=== PATIENT | female | born 1990 | race Caucasian/White ===

== ENCOUNTER 2017-05-26 17:19 | Emergency (ER) | payer SELFPAY ==
[2017-05-26 17:24] VITALS: BP 127/68; BMI 28.3
--- NOTE | 2017-05-26 18:01 | DR.GENAD ---
HPI - PCP Primary Care Physician: pollo - HPI Comment HPI Comment: PUSTULE MID FOREHEAD THAT IS RED AND SWOLLEN. DRAIN AT HOME. WELLING EXTENDING TO NEAR MEDIAL CORNER OF LT EYE. NO FEVER. NO EYE DRAINAGE. - Complaint/Symptoms Chief Complaint Doctors Comments: CELLULITIS MID FOREHEAD TIMES ONE DAY. SWELLING AND REDNESS INCREASING. Chief Complaint:: patient stated her left eye has a bump on the left side of her nose. she stated he busted and started draining today and it hurts - Nurses notes reviewed Nurses Notes Review: Yes - Source History Provided: Patient - Mode of Arrival Mode of Arrival: Ambulatory - Timing Onset of Chief Complaint: 05/25/17 Came on: Suddenly - Duration Duration: Constant Duration: Days - Severity Severity: Moderate PMH - PMH Past Medical History: Yes Past Medical History: Headaches Past Surgical History: Yes Surgical History: - Family History History of Family Medical Conditions: Yes Family Medical History: Diabetes Mellitus, Cancer - Social History Does patient currently use any type of tobacco product: Yes Have you used tobacco products in the last 12 months: Yes Type of Tobacco Use: Cigarettes How many years tobacco product used: 3 Does any household member use tobacco: No Alcohol Use: None Do you use any recreational Drugs:: No Lives With: Family Lives Where: Home - infectious screening In the last 2 months have you had wt loss of >10#?: NO Have you had fever, night sweats or hemotysis?: No Have you traveled outside the country in the last 6 months?: No Isolation: Standard ROS - Review of Systems Constitutional: No Symptoms Reported Eyes: No Symptoms Reported ENTM: No Symptoms Reported Respiratoy: No Symptoms Reported Cardiovascular: No Symptoms Reported Gastrointestinal/Abdominal: No Symptoms Reported Genitourinary: No Symptoms Reported Neurological: No Symptoms Reported Musculoskeletal: No Symptoms Reported Integumentary: Other (FOREHEAD SWELLING WITH REDNESS AND DRAINAGE.) Hematologic/Lymphatic: No Symptoms Reported Endocrine: No Symptoms Reported All Other Systems: Reviewed and Negative PE - Vital Signs Vitals: Temperature 98.6 F Pulse Rate 80 Respiratory Rate 16 Blood Pressure [Right Arm] 120/81 Blood Pressure [Left Arm] 137/71 Blood Pressure 127/68 O2 Sat by Pulse Oximetry 100 - General Limitations: No Limitations General Appearance: Alert - Head Head Exam: Other (SWELLING, REDNESS MID FOREHEAD WITH TENDERNESS.) - Eyes Eye exam: PERRL, EOMI, Other (CORNER LT EYE SWOLLEN,) - ENT ENT Exam: Normal External Ear Exam External Ear Exam: Normal External Inspection TM/Canal Exam: Bilateral Normal Nose Exam: Normal Nose Exam Mouth Exam: Normal Inspection Throat Exam: Normal Inspection - Neck Neck Exam: Trachea Midline - Chest Chest Inspection: Symmetric Chest Wall Rise - Respiratory Respiratory Exam: Normal Lung Sounds Bilat Respiratory Exam: Bilateral Clear to Auscultation - Cardiovascular Cardiovascular Exam: Regular Rate, Normal Rhythm, Normal Heart Sounds - Abdominal Exam Abdominal Exam: Normal Bowel Sounds, Soft. negative: Tenderness - Extremities Extremities Exam: Normal Inspection - Back Back Exam: Normal Inspection - Neurologic Neurological Exam: Alert, Oriented X3, CN II-XII Intact, Normal Gait, Reflexes Normal ( ). negative: Motor Sensory Deficit - Psychiatric Psychiatric Exam: Normal Affect, Normal Mood - Skin Skin Exam: Erythema MDM - Differential Diagnosis Differential Diagnosis: ABSCESS, CELLULITIS FOREHEAD Course - Treatment Treatment: SEE ORDERS. - Education/Counseling Education/Counseling: Patient, Education Educated On: Diagnosis, Needs for Follow Up - Diagnosis Discharge Problem: Abscess Cellulitis Qualifiers: Site of cellulitis: face Qualified Code(s): L03.211 - Cellulitis of face - Discharge Plan Disposition: HOME, SELF-CARE Condition: Stable Prescriptions: Ibuprofen [MOTRIN TAB 600 MG *] 600 mg PO TID PRN #20 tab PRN Reason: Pain/Inflammation Sulfamethoxazole-Trimethoprim [BACTRIM DS TAB 800/160 MG *] 1 tab PO BID #20 tab - Follow ups/Referrals Follow ups/Referrals: Pedro Centeno [Primary Care Provider] - 3 days - Instructions Instructions: Cellulitis Additional Instructions: RETURN TO ED IF WORSE.
[2017-05-26] MEDS ORDERED: BACTRIM DS TAB PO ONE ×2 (18:03→18:07)
[2017-05-26] MEDS ORDERED: MOTRIN TAB 600 MG PO ONE ×2 (18:04→18:07)
== END 2017-05-26 18:19 | disposition home or self-care (01) ==
LOC: ER 17:26
DX: L02.01 Cutaneous abscess of face (principal); L03.211 Cellulitis of face
CPT/HCPCS: 87070; 87075; 87077; 87186; 87205; 99281; 99282

== ENCOUNTER 2017-05-27 11:00 | Emergency (ER) | payer SELFPAY ==
[2017-05-27 11:17] VITALS: BP 151/97; BMI 28.3
[2017-05-27] MEDS ORDERED: ROCEPHIN VIAL 1 GM IM ONE (11:27)
[2017-05-27] MEDS ORDERED: ROCEPHIN VIAL 1 GM ONE (11:28)
--- NOTE | 2017-05-27 11:28 | DR.EYE ---
HPI - Time Seen Time seen: 11:25 - PCP Primary Care Physician: DR. MCGINNIS - Complaint Chief Complaint Doctors Comments: Patient was seen on yesterday given a prescription for a left conjunctivitis. She reports that she can not afford the medication. Chief Complaint:: PT SEEN IN ER ON 05/26/17 FOR CELLULITIS TO THE LEFT EYE PT DID NOT GET HER BACTRIM FILLED B/C PHARMACY CLOSED AND PT STATES THERE IS MORE EDEMA AND HER EYE IS CLOSED ALL THE WAY".. Self Treatment fo Chief Complaint: WARM COMPRESSES - Source History Provided: Patient - Mode of arrival Mode of Arrival: Ambulatory - Timing Onset of Chief Complaint: 05/25/17 PMH - PMH Past Medical History: Yes Past Medical History: Migraines Past Surgical History: Yes Surgical History: Past Surgical History Comment: - Family History History of Family Medical Conditions: No Family Medical History: Diabetes Mellitus, Cancer - Social History Does patient currently use any type of tobacco product: Yes Have you used tobacco products in the last 12 months: Yes Type of Tobacco Use: Cigarettes How many years tobacco product used: 3 Does any household member use tobacco: No Alcohol Use: None Do you use any recreational Drugs:: No Lives With: Family Lives Where: Home - infectious screening In the last 2 months have you had wt loss of >10#?: NO Have you had fever, night sweats or hemotysis?: No Have you traveled outside the country in the last 6 months?: No Isolation: Standard ROS - Review of Systems Eyes: Other (conjunctivitis of left eye, lid is swollen) ENTM: No Symptoms Reported Respiratoy: No Symptoms Reported Cardiovascular: No Symptoms Reported Gastrointestinal/Abdominal: No Symptoms Reported Genitourinary: No Symptoms Reported Neurological: No Symptoms Reported Musculoskeletal: No Symptoms Reported Integumentary: No Symptoms Reported Hematologic/Lymphatic: No Symptoms Reported Endocrine: No Symptoms Reported Psychiatric: No Symptoms Reported All Other Systems: Reviewed and Negative PE - Vital Signs Vitals: Temperature 99.1 F Pulse Rate 105 Respiratory Rate 22 Blood Pressure [Right Arm] 120/81 Blood Pressure [Left Arm] 137/71 Blood Pressure 151/97 O2 Sat by Pulse Oximetry 100 - General General Appearance: Alert, In No Apparent Distress - Head Head Exam: Normal Inspection - Eyes Eye exam: Conjunctival Injection, Periorbital Swelling Eyelids: Swelling Eyelid: Bilateral Sclera/Conjunctival: Injection: Bilateral Posterior Chamber: Deferred: Bilateral - ENT ENT Exam: Normal Exam External Ear Exam: Normal External Inspection TM/Canal Exam: Bilateral Normal Nose Exam: Normal Nose Exam Mouth Exam: Normal Inspection Throat Exam: Normal Inspection - Neck Neck Exam: Normal Inspection, Full ROM - Chest Chest Inspection: Normal Inspection - Respiratory Respiratory Exam: Normal Lung Sounds Bilat Respiratory Exam: Bilateral Clear to Auscultation - Cardiovascular Cardiovascular Exam: Regular Rate, Normal Rhythm - Abdominal Exam Abdominal Exam: Normal Inspection Abdominal Tenderness: negative: RUQ, RLQ, LUQ, LLQ, Epigastrium, Suprapubic, Diffuse, Mild, Moderate, Severe, Other - Extremities Extremities Exam: Normal Inspection - Back Back Exam: Normal Inspection - Neurologic Neurological Exam: Alert, Oriented X3, CN II-XII Intact - Psychiatric Psychiatric Exam: Normal Affect, Normal Mood - Skin Skin Exam: Warm, Dry, Intact Course - Treatment Treatment: IM ceftriaxone 1gm - Reevaluation 1st: Unchanged - Diagnosis Discharge Problem: Conjunctivitis, left eye Qualifiers: Conjunctivitis type: acute Acute conjunctivitis type: unspecified Qualified Code(s): H10.32 - Unspecified acute conjunctivitis, left eye - Discharge Plan Condition: Stable - Follow ups/Referrals Follow ups/Referrals: Pedro Mcginnis [Primary Care Provider] - 3 days - Instructions Additional Instructions: Patient is to get prescription fill on tomorrow
== END 2017-05-27 11:54 | disposition home or self-care (01) ==
LOC: ER 11:17
DX: H10.32 Unspecified acute conjunctivitis, left eye (principal)
CPT/HCPCS: 96372; 99282; J0696

== ENCOUNTER 2023-10-23 06:43 | Inpatient (IN) ==
[2023-10-23 07:11] VITALS: BMI 37.1
[2023-10-23 07:29] LABS: BILIRUBIN,URINE NEGATIVE (NEGATIVE); BLOOD/HEMOGLOBIN,URINE NEGATIVE (NEGATIVE); GLUCOSE, URINE NEGATIVE (NEGATIVE); KETONES,URINE NEGATIVE (NEGATIVE); LEUKOCYTE ESTERASE ,URINE NEGATIVE (NEGATIVE); NITRITES,URINE NEGATIVE (NEGATIVE); PH,URINE 6.5 (5.0 - 8.0); PROTEIN,URINE 2+ (NEGATIVE); UROBILINOGEN,URINE NORMAL (NORMAL)
[2023-10-23 07:41] LABS: APPEARANCE,URINE CLEAR (CLEAR); BACTERIA,URINE TRACE /HPF (NEGATIVE); COLOR,URINE STRAW (YELLOW); RBC,URINE NONE SEEN /HPF (0-3); SQUAMOUS EPITHELIAL CELL,UR MANY /HPF (NEGATIVE)
[2023-10-23 08:11] LABS: HEMATOCRIT 22.2 % (36.0-47.0); HEMOGLOBIN 7.3 g/dL (12.0-16.0); MEAN PLATELET VOLUME 9.2 fL (7.4-11.0); RED BLOOD COUNT 2.97 X10^6/uL (3.5-5.4); WHITE BLOOD COUNT 10.1 X10^3/uL (3.6-10.0)
[2023-10-23 08:15] LABS: INR 0.95 (0.8-1.3)
[2023-10-23 08:16] LABS: BASOPHILS % (AUTO) 0.3 % (0.2-1.0); EOSINOPHILS # (AUTO) 0.3 x10^3/uL (0.0-0.2); EOSINOPHILS % (AUTO) 2.7 % (0.9-2.9); LYMPHOCYTES # (AUTO) 1.3 X10^3/uL (1.3-2.9); MEAN CORPUSCULAR HEMOGLOBIN 24.6 pg (27.0-34.0); MEAN CORPUSCULAR HGB CONC 32.8 g/dL (33.0-35.0); MONOCYTES # (AUTO) 0.7 x10^3/uL (0.3-0.8); MONOCYTES % (AUTO) 6.7 % (0.0-13.0); NEUTROPHILS # (AUTO) 7.8 x10^3/uL (2.2-4.8); NEUTROPHILS % (AUTO) 77.3 % (42.0-75.0); PLATELET COUNT 214 X10^3/uL (150.0-450.0); RED CELL DISTRIBUTION WIDTH 16.8 % (11.6-16.5)
[2023-10-23 08:27] LABS: ALANINE AMINOTRANSFERASE 12 Units/L (12-78); ALBUMIN 1.7 g/dL (3.4-5.0); ALKALINE PHOSPHATASE 190 Units/L (46-116); ASPARTATE AMINO TRANSFERASE 15 Units/L (15-37); BLOOD UREA NITROGEN 11 mg/dL (7-18); CALCIUM 7.9 mg/dL (8.5-10.1); CARBON DIOXIDE 22.5 mmol/L (21-32); CHLORIDE 106 mmol/L (98-107); COR CA(FOR HYPOALB) 9.7 mg/dL (8.5-10.1); CREATININE 0.76 mg/dL (0.55-1.02); GLUCOSE 85 mg/dL (65-99); SODIUM 136 mmol/L (136-145); TOTAL PROTEIN 5.8 g/dL (6.4-8.2); URIC ACID 4.5 mg/dL (2.6-6.0); eGFR NON BLACK RACES > 60 (>60)
[2023-10-23] MEDS ORDERED: LR 1,000 ML IV 1,000 ML IV ONE ×2 (09:03→09:05)
--- NOTE | 2023-10-23 10:13 | US ---
EXAM:OB GREATER THAN 14 WEEKS LIMITHISTORY:; no care, pre eclampticCOMPARISON:NoneTECHNIQUE:Multip le amaya scale and color flow Doppler images of the pelvis were obtained with focused evaluation of the fetus.FINDINGS:A viable single intrauterine is identified with heart tones of 127 beats per minute. A cephalic presentation is observed with a anterior and fundal placenta. Normal amniotic fluid volume is observed with an DARIUSZ of 10.9 cm. Evaluation of the anatomy including the stomach, kidneys, urinary bladder, and four-chamber heart are unremarkable. The extremities and spine are normal in their sonographic appearance. A three-vessel cord is observed. The cord inserts in the abdomen.Estimated weight is 3811 gramsThe BPD is 9.9 cm corresponding to and estimated gestational age of 40 weeks 6 days.The HC is 34.0 cm corresponding to and estimated gestational age of 39 weeks 1 day.The AC is 35.3 cm corresponding to and estimated gestational age of 39 weeks 2 days.The FL is 7.7 cm corresponding to and estimated gestational age of 39 weeks 4 days.IMPRESSION:A viable single intrauterine with an average ultrasound age of 39 weeks 6 days correspond to an estimated date of delivery of 10/24/2023.No identifiable anatomical abnormality in the fetus.THIS IS AN ELECTRONICALLY VERIFIED FINAL [id number]/23/2023 10:10 AM - Electronically signed by César Evans MD
[2023-10-23] MEDS ORDERED: ANCEF VIAL 1 GRAM ONE (10:14)
[2023-10-23] MEDS ORDERED: NS 100 ML IV 100 ML ONE (10:14)
[2023-10-23] MEDS ORDERED: MARCAINE SPINAL ONE (10:25)
[2023-10-23] MEDS ORDERED: VERSED ONE (10:25)
[2023-10-23] MEDS ORDERED: XYLOCAINE 2 % (PLAIN) ONE (10:25)
[2023-10-23] MEDS ORDERED: DILAUDID INJ ONE (10:25)
[2023-10-23] MEDS ORDERED: BARHEMSYS INJ IVP PRN (10:32)
[2023-10-23] MEDS ORDERED: REGLAN INJ 10 MG VIAL IVP PRN ×3 (10:32→13:06)
[2023-10-23] MEDS ORDERED: ZOFRAN INJ 4 MG VIAL IVP PRN (10:32)
[2023-10-23] MEDS ORDERED: BENADRYL INJ 50 MG VIAL IVP PRN ×3 (10:32→13:06)
[2023-10-23] MEDS ORDERED: ZOFRAN INJ 4 MG VIAL ONE (10:34)
[2023-10-23] MEDS ORDERED: PITOCIN ONE ×2 (10:34→15:13)
[2023-10-23] MEDS ORDERED: TORADOL 30 MG VIAL IVP PRN ×2 (10:50→13:06)
[2023-10-23] MEDS ORDERED: NARCAN INJ IVP PRN ×2 (10:50→13:06)
[2023-10-23] MEDS ORDERED: PERCOCET TAB 5/325 MG PO PRN ×2 (10:50→13:06)
[2023-10-23] MEDS ORDERED: BENADRYL INJ 50 MG VIAL ONE (12:22)
[2023-10-23] MEDS ORDERED: ADACEL or BOOSTRIX TDaP VACCINE IM ONE ×2 (13:06→15:27)
[2023-10-23] MEDS ORDERED: D5 1/2 NS 1,000 ML 1,000 ML with PITOCIN 20 UNITS IV SCH ×2 (13:06)
[2023-10-23] MEDS ORDERED: MYLICON TAB 80 MG CHEW PO PRN (13:06)
[2023-10-23] MEDS ORDERED: HYPERRHO S/D (or RHOGAM) IM PRN (13:06)
[2023-10-23] MEDS: ZOFRAN INJ 4 MG VIAL IVP PRN ×2 (15:02→22:36)
[2023-10-23] MEDS ORDERED: D5 1/2 NS 1,000 ML 1,000 ML IV ONE (15:13)
[2023-10-23 18:27] LABS: HEMATOCRIT 18.8 % (36.0-47.0); HEMOGLOBIN 5.9 g/dL (12.0-16.0)
[2023-10-23] MEDS ORDERED: NS 250 ML IV 250 ML IV ONE (21:01)
[2023-10-23] MEDS: D5 1/2 NS 1,000 ML 1,000 ML IV SCH (22:11)
[2023-10-24] MEDS: D5 1/2 NS 1,000 ML 1,000 ML IV SCH ×3 (04:06→06:34)
[2023-10-24 04:14] LABS: HEMATOCRIT 24.9 % (36.0-47.0)
[2023-10-24 04:19] LABS: HEMOGLOBIN 8.2 g/dL (12.0-16.0)
[2023-10-24] MEDS: PRENATAL PLUS PO SCH (09:50)
[2023-10-24] MEDS: MOTRIN TAB 800 MG PO PRN ×2 (11:52→21:13)
[2023-10-24] MEDS: BACTROBAN TOPICAL OINT TOP SCH ×2 (14:35→22:17)
[2023-10-24] MEDS: PERCOCET TAB 5/325 MG PO PRN (14:36)
[2023-10-24] MEDS: FERROUS GLUCONATE PO SCH (17:08)
[2023-10-24 20:14] LABS: SICKLE CELL SOLUBILITY Not Performed
[2023-10-24] MEDS ORDERED: COLACE CAP 100 MG PO SCH (21:00)
[2023-10-25] MEDS: PERCOCET TAB 5/325 MG PO PRN (02:21)
[2023-10-25] MEDS: BACTROBAN TOPICAL OINT TOP SCH (05:24)
[2023-10-25 06:01] VITALS: RESP 18; O2SAT 98
[2023-10-25] MEDS: FERROUS GLUCONATE PO SCH (09:05)
[2023-10-25] MEDS: PRENATAL PLUS PO SCH (09:06)
[2023-10-25] MEDS: MOTRIN TAB 800 MG PO PRN (09:16)
[2023-10-25 10:41] VITALS: BP 161/77; PULSE 91; TEMP 98.1
== END 2023-10-25 11:00 | disposition home or self-care (01) | DRG 784 ==
LOC: ER 06:48 → LD 09:51 → MED/SURG 12:45
PROVIDERS: ADMIT Specialist; ATTEND Specialist